=== PATIENT | male | born 1945 | race Caucasian/White ===

== ENCOUNTER 2018-07-25 17:12 | Emergency (ER) | payer MEDICARE, BC ==
[2018-07-25 17:28] VITALS: BP 175/88
--- NOTE | 2018-07-25 17:52 | UC ---
Dizzy HPI HPI Summary: The patient is a 72-year-old male that presents here for the evaluation of vertigo. This morning he spent about an hour shoveling his driveway. He had finished shoveling and was knocking some snow off of [place]. He had the acute onset of severe vertigo. He went to his knees because he was afraid he would pass out. The symptoms lasted approximately 2 minutes. At no time did he have any chest pain palpitations or shortness of breath. He went in side feeling fine. He should be due to his symptoms to her recent upper respiratory infection. He states he has had some nasal congestion for about a week associated with some mild facial pressure. He has not had any fever. Just prior to arrival here he was seated on a couch watching a basketball game when the vertigo returned. This episode was much less severe than the initial episode and lasted for a minute or less. Of note he states that he never had any routine healthcare until return 64. With his first physical he was noted to be hypertensive. - History Of Current Complaint Chief Complaint: UCDizziness Stated Complaint: DIZZINESS Time Seen by Provider: 07/25/18 17:18 Hx Obtained From: Patient Onset/Duration: Sudden Onset, Lasting Minutes, Resolved Timing: Minutes Severity Initially: Severe Severity Currently: None Pain Intensity: 0 Pain Scale Used: 0-10 Numeric Character: Room Spinning Aggravating Factor(s): Nothing - on episode after shoveling/one episode at rest/ neither episode as a result of change in postion Alleviating Factor(s): Other - spontaneously resolved Associated Signs And Symptoms: Negative: Nausea, Vomiting, Diaphoresis, Tinnitus , Chest Pain, SOB, Palpitations, Unsteady Gait, Visual Changes, Decreased Oral Intake, Change In Medication, Change In Diet, OTC Medications - Allergies/Home Medications Allergies/Adverse Reactions: Allergies Allergy/AdvReac Type Severity Reaction Status Date / Time No Known Allergies Allergy Verified 07/25/18 17:29 Home Medications: Home Medications Aspirin [Aspir-Low] 81 mg PO 07/25/18 [History] Losartan Potassium [Cozaar] 50 mg PO 07/25/18 [History] hydroCHLOROthiazide [Hydrochlorothiazide] 07/25/18 [History] PMH/Surg Hx/FS Hx/Imm Hx Previously Healthy: Yes Cardiovascular History: Hypertension - Surgical History Surgical History: None - Family History Known Family History: Positive: Cardiac Disease, Hypertension - Social History Alcohol Use: Occasionally Substance Use Type: None Smoking Status (MU): Never Smoked Tobacco Review of Systems All Other Systems Reviewed And Are Negative: Yes Constitutional: Positive: Negative Skin: Positive: Negative Eyes: Positive: Negative ENT: Positive: Sinus Congestion Respiratory: Positive: Negative Cardiovascular: Positive: Negative Gastrointestinal: Positive: Negative Genitourinary: Positive: Negative Motor: Positive: Negative Neurovascular: Positive: Negative Musculoskeletal: Positive: Negative Neurological: Positive: Negative Psychological: Positive: Negative Physical Exam Triage Information Reviewed: Yes Appearance: Well-Appearing, No Pain Distress, Well-Nourished Vital Signs: Initial Vital Signs Temp 98 F 07/25/18 17:14 Pulse 71 07/25/18 17:14 Resp 18 07/25/18 17:14 BP 175/88 07/25/18 17:14 Pulse Ox 99 07/25/18 17:14 Vital Signs Reviewed: Yes Eyes: Positive: Conjunctiva Clear ENT: Positive: Nasal congestion, TMs normal - right TM mostly obscured with cerumen, left TM ok, Uvula midline. Negative: Hearing grossly normal, Nasal drainage, Tonsillar swelling, Tonsillar exudate, Trismus, Muffled voice, Hoarse voice, Dental tenderness, Sinus tenderness Neck: Positive: Supple, Nontender, No Lymphadenopathy, Other: - no carotid bruits Respiratory: Positive: Lungs clear, Normal breath sounds, No respiratory distress Cardiovascular: Positive: RRR, Murmur:Sys:Grade _?_/ - III/ MATT (suspect ) Musculoskeletal: Positive: ROM Intact, No Edema Neurological: Positive: Alert Psychological Exam: Normal Skin Exam: Normal Diagnostics - EKG Cardiac Rate: NL Cardiac Rhythm: Sinus: Normal Ectopy: PACs ST Segment: Normal Dizzy Course/Dx - Course Course Of Treatment: Hx of HTN (poorly controlled). FHx of CAD. At risk for this being a TIA. I suggested he go to ER for further investigation. will drive him - Differential Dx/Diagnosis Provider Diagnoses: vertigo of uncertain cause Discharge - Sign-Out/Discharge Documenting (check all that apply): Patient Departure All imaging exams completed and their final reports reviewed: No Studies - Discharge Plan Condition: Stable Disposition: HOME-RECOMMEND TO ED Referrals: Jose Borrero MD [Primary Care Provider] - If Needed Additional Instructions: I suggest you go to the ER for evaluation of your symptoms Please drive directly to the ER - Billing Disposition and Condition Condition: STABLE Disposition: Home-Recommend to ED
== END 2018-07-25 18:04 | disposition home health service (06) ==
LOC: UCEAST 17:12
DX: R42 Dizziness and giddiness (principal); I10 Essential (primary) hypertension; Z79.899 Other long term (current) drug therapy; Z79.82 Long term (current) use of aspirin
CPT/HCPCS: 93005; 99202; G0463

== ENCOUNTER 2018-07-25 18:23 | Emergency (ER) | payer MEDICARE, BC ==
--- NOTE | 2018-07-25 20:17 | ED ---
Dizziness - HPI Summary HPI Summary: Patient is a 72 y/o M w/ c/o intermittent episodes of dizziness. He states he was shovelling snow this morning and felt light-headed. This passed after a few minutes. Later, patient was sitting in chair and watching TV when he began to experience room-spinning dizziness. This also resolved after a few minutes. Patient went to , was sent to ED for further evaluation. He notes that he has had a cold, reports sinus pain, denies ear pain and SNYDER. Patient is on Cozaar and low dose ASA, patient does not have circuit court judge. He denies blurry vision, difficulty walking, and numbness. Fever, chills, erythema at eyes, sore throat, chest pain, SOB, cough, abdominal pain, N/V, dysuria, hematuria, myalgia, edema, rash are not reported. On triage, pain is rated 0/10, nothing is noted to aggravate/alleviate Sx. Home medications and allergies are reviewed. - History Of Current Complaint Chief Complaint: EDDizziness Stated Complaint: DIZZINESS Time Seen by Provider: 07/25/18 19:34 Hx Obtained From: Patient Onset/Duration: Resolved Timing: Intermittent Episode Lasting - minutes Severity Currently: None - pain denied Character: Room Spinning, Lightheaded, Dizzy Aggravating Factor(s): Nothing Alleviating Factor(s): Nothing Associated Signs And Symptoms: Positive: Other: - Fever, chills, erythema at eyes, sore throat, chest pain, SOB, cough, abdominal pain, N/V, dysuria, hematuria, myalgia, edema, rash are not reported. No blurry vision, difficulty walking, no numbness. No blurry vision, difficulty walking, no numbness.. Negative: Nausea, Vomiting, Chest Pain, SOB, Visual Changes, Fever, Chills, Inability to Walk - Allergies/Home Medications Allergies/Adverse Reactions: Allergies Allergy/AdvReac Type Severity Reaction Status Date / Time No Known Allergies Allergy Verified 07/25/18 18:51 PMH/Surg Hx/FS Hx/Imm Hx Cardiovascular History: Reports: Hx Hypertension Sensory History: Denies: Hx Legally Blind, Hx Deafness Opthamlomology History: Denies: Hx Legally Blind EENT History: Denies: Hx Deafness Infectious Disease History: No Infectious Disease History: Denies: Traveled Outside the [place] in Last 30 Days - Family History Known Family History: Positive: Cardiac Disease, Hypertension - Social History Alcohol Use: Occasionally Substance Use Type: Reports: None Smoking Status (MU): Never Smoked Tobacco Review of Systems Positive: Other - POSITIVE - COLD SX . Negative: Fever, Chills Negative: Blurred Vision, Erythema Positive: Other - POSITIVE - SINUS PAIN . Negative: Sore Throat, Ear Ache Negative: Chest Pain Negative: Shortness Of Breath, Cough Negative: Abdominal Pain, Vomiting, Nausea Negative: dysuria, hematuria Negative: Myalgia, Edema Negative: Rash Neurological: Other - POSITIVE - DIZZINESS NEGATIVE - DIFFICULTY WALKING Negative: Headache, Numbness All Other Systems Reviewed And Are Negative: Yes Physical Exam - Summary Physical Exam Summary: Constitutional: Well-developed, Well-nourished, Alert. (-) Distressed Skin: Warm, Dry HENT: Normocephalic; Atraumatic; Cerumen Impaction Bilaterally Eyes: Conjunctiva normal Neck: Musculoskeletal ROM normal neck. (-) JVD, (-) Stridor, (-) Tracheal deviation Cardio: Rhythm regular, rate normal, Heart sounds normal; Intact distal pulses; The pedal pulses are 2+ and symmetric. Radial pulses are 2+ and symmetric. (-) Murmur Pulmonary/Chest wall: Effort normal. (-) Respiratory distress, (-) Wheezes, (-) Rales Abd: Soft, (-) epigastric tenderness, (-) Distension, (-) Guarding, (-) Rebound Musculoskeletal: (-) Edema Lymph: (-) Cervical adenopathy Neuro: Alert, Oriented x3 Psych: Mood and affect Normal Triage Information Reviewed: Yes Vital Signs On Initial Exam: Initial Vitals Temp Pulse Resp BP Pulse Ox 97.8 F 79 18 167/84 99 07/25/18 18:48 07/25/18 18:48 07/25/18 18:48 07/25/18 18:48 07/25/18 18:48 Vital Signs Reviewed: Yes Diagnostics - Vital Signs Vital Signs Temp Pulse Resp BP Pulse Ox 07/25/18 20:02 70 16 166/90 98 07/25/18 20:00 73 20 98 07/25/18 19:54 73 178/89 07/25/18 19:51 73 25 178/89 97 07/25/18 19:32 70 19 191/83 99 07/25/18 19:29 75 23 183/84 98 07/25/18 19:08 72 16 98 07/25/18 19:03 74 13 192/83 100 07/25/18 18:48 97.8 F 79 18 167/84 99 - Laboratory Result Diagrams: 07/25/18 20:14 07/25/18 20:14 Lab Statement: Any lab studies that have been ordered have been reviewed, and results considered in the medical decision making process. - Radiology CXR Radiology Interpretation Completed By: ED Physician Summary of Radiographic Findings: No acute disease. - EKG 2014 Cardiac Rate: NL - rate of 72 bpm EKG Rhythm: Sinus Rhythm Summary of EKG Findings: EKG SHOWED NORMAL SINUS RHYTHM WITH RATE OF 72 BPM, NO STEMI. Re-Evaluation - Re-Evaluation First Eval Re-Evaluation Time: 20:49 Change: Improved Comment: ears irrigated with lukewarm sterile saline 60 ml both sides, moderate amount of cerumen removed. Second Eval Re-Evaluation Time: 21:05 Change: Improved Comment: ears irrigated further, large piece of cerumen removed. Third Eval Re-Evaluation Time: 21:50 Comment: results of labs and tests were discussed with patient, he is agreeable with discharge Dizzy Course/Dx - Course Course Of Treatment: Patient is a 72 y/o M w/ c/o intermittent episodes of dizziness. He states he was shovelling snow this morning and felt light-headed. This passed after a few minutes. Later, patient was sitting in chair and watching TV when he began to experience room-spinning dizziness. This also resolved after a few minutes. Patient went to , was sent to ED for further evaluation. He notes that he has had a cold, reports sinus pain, denies ear pain and SNYDER. Patient is on Cozaar and low dose ASA, patient does not have circuit court judge. He denies blurry vision, difficulty walking, and numbness. On physical exam, Cerumen Impaction Bilaterally is noted. Labs showed Hgb 13.5, Hct 39, mono% 7.7, sodium 133, chloride 96, glucose 105, lactic acid 0.8, trop 0.01. EKG SHOWED NORMAL SINUS RHYTHM WITH RATE OF 72 BPM, NO STEMI. CXR showed No acute disease. Patient's ears were irrigated with saline, cerumen removed. Vertigo is suspected to be secondary to cercumen impaction. Results of labs and tests were discussed with patient. He is agreeable with discharge. Dx of cercumen impaction, benign positional vertigo, and uncontrolled HTN. - Diagnoses Provider Diagnoses: Benign positional vertigo, Cerumen impaction, Uncontrolled hypertension Discharge - Sign-Out/Discharge Documenting (check all that apply): Patient Departure - DISCHARGE - Discharge Plan Condition: Stable Disposition: HOME Prescriptions: Meclizine TAB* [Antivert 12.5 TAB*] 25 mg PO Q8H PRN #10 tab PRN Reason: Dizziness Patient Education Materials: Cerumen Impaction (ED), Benign Paroxysmal Positional Vertigo (ED), Hypertension in the Older Adult (ED) Referrals: Jose Borrero MD [Primary Care Provider] - 2 Days Additional Instructions: RETURN TO EMERGENCY DEPARTMENT FOR ANY NEW OR WORSENING SYMPTOMS. - Attestation Statements Document Initiated by Scribe: Yes Documenting Scribe: AGA HANNA Provider For Whom Scribe is Documenting (Include Credential): SARA MONK MD Scribe Attestation: IAGA , scribed for SARA MONK MD on 07/25/18 at 2304.
[2018-07-25 20:29] LABS: ABS Basophils 0 10^3/ul (0-0.2); ABS Eosinophils 0.3 10^3/ul (0-0.6); ABS Lymphocytes 2.1 10^3/ul (1.0-4.8); ABS Monocytes 0.6 10^3/ul (0-0.8); ABS Neutrophils 5.3 10^3/ul (1.5-7.7); ABS Nucleated RBC 0 10^3/ul; Hematocrit 39 % (42-52); Hemoglobin 13.5 g/dl (14.0-18.0); Lymphocyte % 25.2 % (25-47); Mean Corpuscular HGB Conc 35 g/dl (31-36); Mean Corpuscular Hemoglobin 30 pg (27-31); Mean Corpuscular Volume 87 fL (80-94); Mean Platelet Volume 7.8 fL (7.4-10.4); Nucleated Red Blood Cells % 0; Platelet Count 290 10^3/ul (150-450); Red Blood Count 4.52 10^6/ul (4.00-5.40); Red Cell Distribution Width 13 % (10.5-15); White Blood Count 8.4 10^3/ul (3.5-10.8)
[2018-07-25 20:45] LABS: EGFR Non-African American 92.1 (>60)
[2018-07-25 22:17] VITALS: BP 153/82
== END 2018-07-25 22:16 | disposition home or self-care (01) ==
LOC: ED 18:23
DX: I10 Essential (primary) hypertension (principal); R42 Dizziness and giddiness; H61.20 Impacted cerumen, unspecified ear
CPT/HCPCS: 36415; 71046; 80053; 83605; 84484; 85025; 93005; 99283